=== PATIENT | female | born 1960 | race Caucasian/White ===

== ENCOUNTER 2017-09-01 06:00 | Day surgery (SDC) | payer OTHER ==
[~2017-09-01 06:00] MED LIST: KETO10TA2 PO
[2017-09-01] MEDS ORDERED: MACROBID 100 M100 MG PO (10:12)
[2017-09-01] MEDS ORDERED: ULTRACET PO (10:12)
== END 2017-09-01 14:00 | disposition home or self-care (01) ==
LOC: CIR.AMB 06:00
DX: N81.11 Cystocele, midline (principal)

== ENCOUNTER 2018-03-26 17:02 | Outpatient (CLI) | payer OTHER ==
[~2018-03-26 17:02] MED LIST changes: +MACROBID 100 M100 MG PO; +ULTRACET PO
== END 2018-03-26 17:22 | disposition home or self-care (01) ==
LOC: LAB 17:02
DX: J11.1 Influenza due to unidentified influenza virus with other respiratory manifestations (principal); J06.9 Acute upper respiratory infection, unspecified